=== PATIENT | male | born 1950 | race Caucasian/White ===

== ENCOUNTER → 2023-01-10 | Outpatient (CLI) | payer MEDICARE, OTHER, SELFPAY ==
--- NOTE | 2023-01-10 13:07 | RAD_ITS ---
STUDY: X-RAY - LUMBAR SPINE REASON FOR EXAM: Male, 72 years old. Radiculopathy, lumbar region TECHNIQUE: 4 view(s) of the lumbar spine were obtained. COMPARISON: None FINDINGS: Normal lumbar lordosis. There is no substantial scoliosis. There is a normal alignment of the vertebrae. No evidence of dynamic instability. There is multilevel endplate spondylosis of the lumbar vertebrae. There is multi-level degenerative disc disease with multi-level disc space narrowing. This is more severe at L5-S1. There is no demonstrated fracture. Multilevel bilateral facet hypertrophy. The soft tissue structures are unremarkable. RAD/L/S Spine Min 4 Views IMPRESSION: Multilevel degenerative disease as described with no acute fracture or spondylolisthesis. No evidence of dynamic instability. Electronically Signed: Sarah Christensen MD at 16:19 EDT ,
== END | disposition home or self-care (01) ==
PROVIDERS: PCP Preventive Medicine Occupational Medicine; Referring Provider Anesthesiology Pain Medicine; Visit Provider Anesthesiology Pain Medicine
DX: M54.16 Radiculopathy, lumbar region (principal)
CPT/HCPCS: 72110